=== PATIENT | male | born 1945 | race Caucasian/White ===

== ENCOUNTER → 2017-09-25 | Outpatient (CLI) | payer MEDICARE | END | disposition home or self-care (01) | LOC: CDC 10:17 | DX: Z01.810 Encounter for preprocedural cardiovascular examination (principal); S46.112A Strain of muscle, fascia and tendon of long head of biceps, left arm, initial encounter; M75.122 Complete rotator cuff tear or rupture of left shoulder, not specified as traumatic; M75.42 Impingement syndrome of left shoulder; I10 Essential (primary) hypertension; E11.9 Type 2 diabetes mellitus without complications | CPT/HCPCS: 93000 ==